=== PATIENT | female | born 1940 | race Caucasian/White ===

== ENCOUNTER → 2019-04-01 | Outpatient (CLI) | payer OTHER ==
[~2019-04-01] MED LIST: ACET-66 PO; ASPI-555 PO; CALC-724 PO; CETI10CA5 PO; GLUC-198 PO; HYDR12.54 PO; HYDR28CR51 TP; KETOCONAZOLE; LISI-613 PO; MULT1CAP32 PO; NAPR-1180 PO; OMEP40CA13 PO; PREMC VG; RALO60TA PO; SIMV20TA6 PO
== END | disposition home or self-care (01) ==
LOC: RAH 15:08
PROVIDERS: ATTEND Internal Medicine Critical Care Medicine
DX: M85.871 Other specified disorders of bone density and structure, right ankle and foot (principal)
CPT/HCPCS: 73610

== ENCOUNTER → 2019-04-24 | Outpatient (CLI) | payer OTHER ==
[~2019-04-24] MED LIST changes: +SIMV-43 PO; -SIMV20TA6 PO
== END | disposition home or self-care (01) ==
LOC: RAH 10:24
PROVIDERS: ATTEND Physical Medicine & Rehabilitation
DX: S33.39XA Dislocation of other parts of lumbar spine and pelvis, initial encounter (principal); M41.54 Other secondary scoliosis, thoracic region; X58.XXXA Exposure to other specified factors, initial encounter; Y93.89 Activity, other specified; Y92.89 Other specified places as the place of occurrence of the external cause; Y99.8 Other external cause status
CPT/HCPCS: 72110

== ENCOUNTER → 2019-05-27 | Outpatient (CLI) | payer OTHER | END | disposition home or self-care (01) | LOC: RAH 13:27 | PROVIDERS: ATTEND Physical Medicine & Rehabilitation | DX: M51.36 Other intervertebral disc degeneration, lumbar region (principal); M47.817 Spondylosis without myelopathy or radiculopathy, lumbosacral region; M41.85 Other forms of scoliosis, thoracolumbar region; G03.8 Meningitis due to other specified causes; M48.07 Spinal stenosis, lumbosacral region; Z98.890 Other specified postprocedural states | CPT/HCPCS: 72148 ==

== ENCOUNTER → 2020-02-01 | Outpatient (CLI) | payer OTHER ==
[~2020-02-01] MED LIST changes: -ASPI-555 PO; +ASPI-556 PO
== END | disposition home or self-care (01) ==
LOC: RAH 13:30
PROVIDERS: ATTEND Physical Medicine & Rehabilitation
DX: M76.71 Peroneal tendinitis, right leg (principal)
CPT/HCPCS: 73721

== ENCOUNTER → 2020-05-26 | Outpatient (CLI) | payer OTHER ==
[~2020-05-26] MED LIST changes: +CALC-1158 PO; -CALC-724 PO
== END | disposition home or self-care (01) ==
LOC: RAH 11:29
PROVIDERS: ATTEND Physical Medicine & Rehabilitation
DX: M43.17 Spondylolisthesis, lumbosacral region (principal); M51.37 Other intervertebral disc degeneration, lumbosacral region; M51.36 Other intervertebral disc degeneration, lumbar region; M41.85 Other forms of scoliosis, thoracolumbar region; M54.5 Low back pain
CPT/HCPCS: 72114

== ENCOUNTER → 2020-06-15 | Outpatient (CLI) | payer OTHER | END | disposition home or self-care (01) | LOC: RAH 10:39 | PROVIDERS: ATTEND Physical Medicine & Rehabilitation | DX: M47.816 Spondylosis without myelopathy or radiculopathy, lumbar region (principal); M48.07 Spinal stenosis, lumbosacral region | CPT/HCPCS: 72148 ==

== ENCOUNTER 2020-08-31 12:00 | Observation (INO) | payer OTHER ==
[~2020-08-31 12:00] MED LIST changes: -ACET-66 PO; -CETI10CA5 PO; -GLUC-198 PO; -HYDR12.54 PO; -HYDR28CR51 TP; -KETOCONAZOLE; -LISI-613 PO; -NAPR-1180 PO; -PREMC VG; -RALO60TA PO
[2020-09-02 11:55] LABS: BASOPHILS % (AUTO) 0.5 % (0.0-5.0); EOSINOPHILS % (AUTO) 1.5 % (0.0-8.0); HEMATOCRIT 41.8 % (36-48); LYMPHOCYTES % (AUTO) 24.8 % (21.0-51.0); MEAN CORPUSCULAR HEMOGLOBIN 33.3 pg (27.0-33.0); MEAN CORPUSCULAR HGB CONC 33.7 g/dL (32.0-36.0); MEAN CORPUSCULAR VOLUME 98.8 fL (79-99); MONOCYTES % (AUTO) 9.4 % (3.0-13.0); NEUTROPHILS % (AUTO) 63.4 % (40.0-77.0); PLATELET COUNT (AUTO) 278 K/uL (130-400); RED BLOOD CELL COUNT(AUTO) 4.23 MIL/uL (4.00-5.50); RED CELL DISTRIBUTION WIDTH 13.1 % (11.0-15.5); WHITE BLOOD COUNT (AUTO) 8.4 K/uL (4.8-10.8)
[2020-09-02 12:14] LABS: CREATININE 0.8 mg/dL (0.5-1.5); POTASSIUM 4.6 mmol/L (3.5-5.1)
[2020-09-02 12:24] LABS: INR 0.94 (0.85-1.15); PROTHROMBIN TIME 10.3 SEC (9.6-11.6)
[2020-09-02 12:26] LABS: PARTIAL THROMBOPLASTIN TIME 27.6 SEC (26.3-35.5)
[2020-09-08] MEDS ORDERED: TRAM50TA4 PO (10:38)
[2020-09-08] MEDS ORDERED: LEVO5TAB13 PO (10:38)
[2020-09-08] MEDS ORDERED: OXYB5TAB15 PO (10:38)
[2020-09-08] MEDS ORDERED: LISI1TAB51 PO (10:38)
[2020-09-08] MEDS ORDERED: ACET-2521 PO (10:38)
[2020-09-08] MEDS ORDERED: FLUT15.845 NS (10:38)
[2020-09-09] VITALS (21 sets, daily range): BP systolic 89–150; BP diastolic 40–77
[2020-09-09] MEDS ORDERED: LACTATED RINGERS 1000ML 1,000 ML IV ONE (06:34)
[2020-09-09] MEDS ORDERED: BUPIVACAINE/PF 0.25% 30ML VIAL IJ ONE ×2 (06:59→09:52)
[2020-09-09] MEDS ORDERED: VANCOMYCIN HCL 1 GM VIAL ONE (06:59)
[2020-09-09] MEDS ORDERED: THROMBIN-JMI 20000 UNIT KIT TP ONE (07:00)
[2020-09-09] MEDS ORDERED: TOBRAMYCIN SULFATE 40MG/1ML VIAL ONE (07:00)
[2020-09-09] MEDS ORDERED: CEFAZOLIN SODIUM 1 GM VIAL ONE ×2 (07:03→07:19)
[2020-09-09] MEDS ORDERED: DEXAMETHASONE SOD PHOSPHATE 10MG/ML 1ML VIAL ONE (07:33)
[2020-09-09] MEDS ORDERED: SUCCINYLCHOLINE CHLORIDE 20 MG/ML 10 ML VIAL ONE (07:33)
[2020-09-09] MEDS ORDERED: LIDOCAINE PF 2% 5ML ABBOJECT ONE (07:33)
[2020-09-09] MEDS ORDERED: MIDAZOLAM HCL 1 MG/ML 2ML VIAL ONE (07:34)
[2020-09-09] MEDS ORDERED: ROCURONIUM 10MG/1ML SYR 10 MG/ML ML ONE ×2 (07:34→08:43)
[2020-09-09] MEDS ORDERED: ONDANSETRON HCL 4 MG/2 ML VIAL ONE (07:34)
[2020-09-09] MEDS ORDERED: NEOSTIGMINE 5MG/5ML SYR IV ONE (07:34)
[2020-09-09] MEDS ORDERED: GLYCOPYRROLATE 1 MG/5 ML SYRINGE ONE (07:34)
[2020-09-09] MEDS ORDERED: PROPOFOL 10 MG/ML 20ML VIAL IV ONE (07:34)
[2020-09-09] MEDS ORDERED: FENTANYL CITRATE PF 50 MCG/1 ML 2ML VIAL ONE (07:35)
[2020-09-09] MEDS ORDERED: MEPERIDINE-PF 25 MG/ML SYG ONE (07:52)
[2020-09-09] MEDS ORDERED: PHENYLEPHRINE HCL 10 MG/ML 1ML VIAL IV ONE (08:12)
[2020-09-09] MEDS ORDERED: EPHEDRINE SULFATE 50 MG/ML AMPULE ONE (08:28)
[2020-09-09] MEDS ORDERED: TRIAMCINOLONE ACETONIDE 40 MG/ML 1ML VIAL ONE (09:02)
[2020-09-09] MEDS ORDERED: KETOROLAC TROMETHAMINE 30MG/ML ONE (09:03)
[2020-09-09] MEDS ORDERED: TRANEXAMIC ACID 1000MG/10ML ONE (09:09)
[2020-09-09] MEDS ORDERED: HYDROMORPHONE 1 MG/1 ML AMP ONE (09:11)
[2020-09-09] MEDS ORDERED: ACETAMINOPHEN-CODEINE 300/30MG TAB PO PRN ×2 (18:00)
[2020-09-09] MEDS ORDERED: MEPERIDINE-PF 75 MG/ML SYG IM PRN (18:00)
[2020-09-09] MEDS ORDERED: TRAMADOL HCL 50 MG TABLET PO PRN (18:00)
[2020-09-09] MEDS ORDERED: ACETAMINOPHEN EXTENDED RELEASE 650 MG TABLET PO PRN (18:00)
[2020-09-09] MEDS: CEFAZOLIN SODIUM 1 GM VIAL IVP SCH (18:31)
[2020-09-09] MEDS: SODIUM CHLORIDE 0.9% 1000ML 1,000 ML IV SCH ×2 (18:31→22:37)
[2020-09-09] MEDS ORDERED: LISINOPRIL 20 MG TABLET PO SCH (21:00)
[2020-09-09] MEDS ORDERED: HYDROCHLOROTHIAZIDE 25 MG TABLET PO SCH (21:00)
[2020-09-09] MEDS ORDERED: FLUTICASONE PROPIONATE 50MCG/SPRAY 16 GM BOTTLE NS SCH (21:00)
[2020-09-09] MEDS ORDERED: OXYBUTYNIN CHLORIDE 5 MG TABLET PO SCH (21:00)
[2020-09-09] MEDS ORDERED: ONDANSETRON HCL 4 MG/2 ML VIAL IVP PRN (21:30)
[2020-09-10] MEDS: CEFAZOLIN SODIUM 1 GM VIAL IVP SCH ×2 (02:18→10:01)
[2020-09-10 04:16] VITALS: BP 118/52
[2020-09-10 07:00] VITALS: BP 103/54
[2020-09-10] MEDS ORDERED: CETIRIZINE HCL 5 MG TABLET PO SCH (09:00)
[2020-09-10] MEDS ORDERED: MULTIVITAMIN TABLET PO SCH (09:00)
[2020-09-10] MEDS ORDERED: PANTOPRAZOLE SODIUM 40 MG TABLET.DR PO SCH (09:00)
[2020-09-10] MEDS ORDERED: CALCIUM 600 + VITAMIN D 400 TABLET PO SCH (09:00)
[2020-09-10 11:30] VITALS: BP 115/54
[2020-09-10] MEDS ORDERED: SIMVASTATIN 20 MG TABLET PO SCH (17:00)
== END 2020-09-10 15:15 | disposition home or self-care (01) ==
LOC: EDSTATUS 12:00 → DAHIP 09-09 05:49 → 3DH 09-09 12:14
PROVIDERS: ADMIT Neurological Surgery; ATTEND Neurological Surgery
DX: M48.07 Spinal stenosis, lumbosacral region (principal); Z20.822 Contact with and (suspected) exposure to COVID-19; M47.27 Other spondylosis with radiculopathy, lumbosacral region; I10 Essential (primary) hypertension; K21.9 Gastro-esophageal reflux disease without esophagitis; F17.210 Nicotine dependence, cigarettes, uncomplicated; Z98.49 Cataract extraction status, unspecified eye; Z90.711 Acquired absence of uterus with remaining cervical stump; Z79.899 Other long term (current) drug therapy; Z88.5 Allergy status to narcotic agent
CPT/HCPCS: 36415; 63030; 63035 ×2; 71045; 72020; 80048; 85025; 85610; 85730; 93005; 96361 ×2; 96374; 96375; 96376; A4215; A4221; A4222; A4223; A4649 ×3; A4663; A4930; A6219; A6260; G0378 ×33; J0330; J0690 ×5; J1030; J1100; J1170; J1885; J2001; J2175; J2250; J2370; J2405 ×2; J2704; J2710; J3010; J3260; J3301; J3370; J3490 ×5; J7030; J7120 ×2; U0003

== ENCOUNTER → 2021-05-09 | Outpatient (CLI) | payer OTHER ==
[~2021-05-09] MED LIST changes: +ACET-2521 PO; -ASPI-556 PO; +FLUT15.845 NS; +LEVO5TAB13 PO; +LISI1TAB51 PO; -OMEP40CA13 PO; +OMEP40CA21 PO; +OXYB5TAB15 PO; +TRAM50TA4 PO
== END | disposition home or self-care (01) ==
LOC: RAH 09:27
PROVIDERS: ATTEND Physical Medicine & Rehabilitation
DX: I67.82 Cerebral ischemia (principal); G31.9 Degenerative disease of nervous system, unspecified
CPT/HCPCS: 70551

== ENCOUNTER 2021-05-14 15:35 | Observation (INO) | payer OTHER ==
[~2021-05-14] VITALS: Ht 157.5 cm; Wt 74.8 kg
[2021-05-14 16:00] LABS: BASOPHILS % (AUTO) 0.4 % (0.0-5.0); EOSINOPHILS % (AUTO) 1.2 % (0.0-8.0); HEMATOCRIT 41.7 % (36-48); LYMPHOCYTES % (AUTO) 27.4 % (21.0-51.0); MEAN CORPUSCULAR HEMOGLOBIN 31.5 pg (27.0-33.0); MEAN CORPUSCULAR HGB CONC 33.1 g/dL (32.0-36.0); MEAN CORPUSCULAR VOLUME 95.2 fL (79-99); MONOCYTES % (AUTO) 9.2 % (3.0-13.0); NEUTROPHILS % (AUTO) 61.4 % (40.0-77.0); PLATELET COUNT (AUTO) 258 K/uL (130-400); RED BLOOD CELL COUNT(AUTO) 4.38 MIL/uL (4.00-5.50); RED CELL DISTRIBUTION WIDTH 13.2 % (11.0-15.5); WHITE BLOOD COUNT (AUTO) 8.1 K/uL (4.8-10.8)
[2021-05-14] MEDS ORDERED: LABETALOL 20MG SYG IV ONE (16:00)
[2021-05-14 16:15] LABS: CREATININE 0.7 mg/dL (0.5-1.5); POTASSIUM 3.2 mmol/L (3.5-5.1)
[2021-05-14 16:21] LABS: B-TYPE NATRIURETIC PEPTIDE 85 pg/mL (0-100)
[2021-05-14 16:31] LABS: ALBUMIN 3.8 g/dL (3.5-5.0); BILIRUBIN,TOTAL 0.3 mg/dL (0.2-1.0); CRP QUANTITATIVE 5.2 mg/L (0.00-9.0); TOTAL PROTEIN, SERUM 7.3 g/dL (6.0-8.3)
[2021-05-14 16:53] LABS: APPEARANCE,URINE Clear (CLEAR); BILIRUBIN,URINE Negative (NEGATIVE); COLOR,URINE Yellow (YELLOW); GLUCOSE, URINE (UA) Negative (NEGATIVE); KETONES,URINE Negative (NEGATIVE); LEUKOCYTE ESTERASE ,URINE Trace (NEGATIVE); NITRATE,URINE Negative (NEGATIVE); OCCULT BLOOD,URINE Negative (NEGATIVE); PH,URINE 6.5 (5.0-8.0); PROTEIN,URINE Negative (NEGATIVE); UROBILINOGEN,URINE 0.2 mg/dL (0.2-1.0)
[2021-05-14 17:00] LABS: RBC,URINE 0-1 /HPF (0-1)
[2021-05-14 17:01] LABS: BACTERIA,URINE Rare /HPF (None Seen); SQUAMOUS EPITHELIAL CELL,UR Rare /HPF (0-2); TRANSITIONAL EPI CELLS,URINE Rare /HPF (None Seen)
[2021-05-14] MEDS ORDERED: POTASSIUM BICARB/CIT AC 25 MEQ TABLET.EFF PO ONE (18:00)
[2021-05-14 18:28] LABS: HEMOGLOBIN A1C 6.1 % (4.0-6.0)
[2021-05-14] MEDS ORDERED: ACETAMINOPHEN 325 MG TAB PO PRN (18:30)
[2021-05-14] MEDS ORDERED: ONDANSETRON 4MG INJ IV PRN (18:30)
[2021-05-14] MEDS ORDERED: NITROGLYCERIN 0.4 MG SL TAB SL PRN (18:30)
[2021-05-14 18:37] LABS: CREATINE KINASE, TOTAL 133 U/L (21-232)
[2021-05-14 18:43] LABS: THYROID STIMULATING HORMONE 1.87 uIU/mL (0.36-3.74)
[2021-05-14 18:44] LABS: MAGNESIUM 2.1 mg/dL (1.80-2.40)
[2021-05-14 19:06] LABS: MYOGLOBIN 60 ng/mL (10-92)
[2021-05-14 19:09] LABS: INR 0.99 (0.85-1.15); PROTHROMBIN TIME 10.8 SEC (9.6-11.6)
[2021-05-14 19:10] LABS: PARTIAL THROMBOPLASTIN TIME 28.2 SEC (26.3-35.5)
[2021-05-14] MEDS ORDERED: DILTIAZEM 50MG VIAL IV SCH (20:00)
[2021-05-14] MEDS ORDERED: DILTIAZEM 125MG+100 ML NS 125 ML IV SCH (20:00)
[2021-05-14] MEDS ORDERED: DILTIAZEM 25MG INJ IVP ONE (20:00)
[2021-05-14] MEDS ORDERED: DILTIAZEM 125 MG/25 ML INJ 125 MG in 0.9%NACL 100ML 100 ML IV SCH (20:00)
[2021-05-14] MEDS: 0.9%NACL 1000ML 1,000 ML IV SCH (20:08)
[2021-05-14] MEDS: METOPROLOL TARTRATE 25 MG TAB PO SCH (20:16)
[2021-05-14] MEDS: FAMOTIDINE 20MG TAB PO SCH (20:16)
[2021-05-14] MEDS: ENOXAPARIN SODIUM 40 MG/0.4 ML SYRINGE SQ ONE ×2 (20:17→20:27)
[2021-05-14 20:55] LABS: AMPHET/METH SCREEN,URINE NEGATIVE (NEGATIVE); BARBITURATE SCREEN, URINE NEGATIVE (NEGATIVE); BENZODIAZEPINES SCREEN,URINE NEGATIVE (NEGATIVE); CANNABINOID SCREEN,URINE NEGATIVE (NEGATIVE); COCAINE SCREEN,URINE NEGATIVE (NEGATIVE); OPIATE SCREEN,URINE NEGATIVE (NEGATIVE); PHENCYCLIDINE SCREEN,URINE NEGATIVE (NEGATIVE)
[2021-05-15] MEDS: ACETAMINOPHEN 325 MG TAB PO PRN ×3 (01:31→17:10)
[2021-05-15] MEDS: 0.9%NACL 1000ML 1,000 ML IV SCH ×2 (04:30→17:10)
[2021-05-15 06:37] LABS: BASOPHILS % (AUTO) 0.4 % (0.0-5.0); EOSINOPHILS % (AUTO) 1.1 % (0.0-8.0); HEMATOCRIT 39.7 % (36-48); LYMPHOCYTES % (AUTO) 25.6 % (21.0-51.0); MEAN CORPUSCULAR HEMOGLOBIN 31.6 pg (27.0-33.0); MEAN CORPUSCULAR HGB CONC 33.2 g/dL (32.0-36.0); MONOCYTES % (AUTO) 10.2 % (3.0-13.0); NEUTROPHILS % (AUTO) 62.4 % (40.0-77.0); PLATELET COUNT (AUTO) 255 K/uL (130-400); RED BLOOD CELL COUNT(AUTO) 4.18 MIL/uL (4.00-5.50); RED CELL DISTRIBUTION WIDTH 13.5 % (11.0-15.5); WHITE BLOOD COUNT (AUTO) 7.4 K/uL (4.8-10.8)
[2021-05-15 06:50] LABS: ALBUMIN 3.6 g/dL (3.5-5.0); BILIRUBIN,TOTAL 0.3 mg/dL (0.2-1.0); CREATININE 0.8 mg/dL (0.5-1.5); MAGNESIUM 2.1 mg/dL (1.80-2.40); POTASSIUM 3.6 mmol/L (3.5-5.1)
[2021-05-15] MEDS: ENOXAPARIN SODIUM 40 MG/0.4 ML SYRINGE SQ SCH (08:05)
[2021-05-15] MEDS: METOPROLOL TARTRATE 25 MG TAB PO SCH ×2 (08:05→20:38)
[2021-05-15] MEDS: FAMOTIDINE 20MG TAB PO SCH ×2 (08:05→20:38)
[2021-05-16] MEDS: 0.9%NACL 1000ML 1,000 ML IV SCH (00:30)
[2021-05-16] MEDS: METOPROLOL TARTRATE 25 MG TAB PO SCH (09:00)
[2021-05-16] MEDS: FAMOTIDINE 20MG TAB PO SCH (09:34)
[2021-05-16] MEDS: ENOXAPARIN SODIUM 40 MG/0.4 ML SYRINGE SQ SCH (09:34)
[2021-05-16] MEDS ORDERED: APIX5TAB PO (16:47)
[2021-05-16] MEDS ORDERED: METO25TA6 PO (17:27)
[2021-05-16 17:28] VITALS: BP 157/74
== END 2021-05-16 18:20 | disposition home or self-care (01) ==
LOC: EDH 15:35 → EDHIP 18:10 → INTOOBSV 18:10 → EDHIP 05-16 18:31
PROVIDERS: ADMIT Internal Medicine; ATTEND Internal Medicine
DX: I48.91 Unspecified atrial fibrillation (principal); Z20.822 Contact with and (suspected) exposure to COVID-19; E87.6 Hypokalemia; E66.9 Obesity, unspecified; I48.20 Chronic atrial fibrillation, unspecified; R19.7 Diarrhea, unspecified; R82.71 Bacteriuria; I10 Essential (primary) hypertension; K21.9 Gastro-esophageal reflux disease without esophagitis; M48.061 Spinal stenosis, lumbar region without neurogenic claudication; N81.4 Uterovaginal prolapse, unspecified; N32.81 Overactive bladder; E78.00 Pure hypercholesterolemia, unspecified; D68.59 Other primary thrombophilia; Z86.73 Personal history of transient ischemic attack (TIA), and cerebral infarction without residual deficits; Z79.01 Long term (current) use of anticoagulants; Z79.899 Other long term (current) drug therapy; Z87.891 Personal history of nicotine dependence; Z90.710 Acquired absence of both cervix and uterus; Z98.890 Other specified postprocedural states; Z68.30 Body mass index [BMI] 30.0-30.9, adult
CPT/HCPCS: 36415 ×2; 71045; 80053 ×2; 80061; 80305; 81001; 82550 ×2; 83036; 83735 ×2; 83874 ×2; 83880; 84443; 84484 ×2; 85025 ×2; 85610; 85730; 86140; 87088; 87635; 93005 ×3; 93306; 93356; 96361 ×3; 96372 ×3; 96374; 96375; 99285; G0378; J1650 ×3; J3490 ×2; J7030

== ENCOUNTER → 2021-06-30 | Outpatient (CLI) | payer OTHER ==
[~2021-06-30] MED LIST changes: +APIX5TAB PO; +METO25TA6 PO; +REGADENOSON 0.4 MG/5 ML PF SYG IVP ONE
== END | disposition home or self-care (01) ==
LOC: SHCH 08:01
PROVIDERS: ATTEND Internal Medicine Cardiovascular Disease
DX: R07.89 Other chest pain (principal); R00.1 Bradycardia, unspecified
CPT/HCPCS: 78452; 93017; 96374; A9500 ×2; J2785

== ENCOUNTER 2021-09-04 08:06 | Day surgery (SDC) | payer OTHER ==
[2021-08-31 13:10] LABS: BASOPHILS % (AUTO) 0.4 % (0.0-5.0); EOSINOPHILS % (AUTO) 1.3 % (0.0-8.0); HEMATOCRIT 42.6 % (36-48); LYMPHOCYTES % (AUTO) 25.1 % (21.0-51.0); MEAN CORPUSCULAR HEMOGLOBIN 31.6 pg (27.0-33.0); MEAN CORPUSCULAR HGB CONC 32.4 g/dL (32.0-36.0); MEAN CORPUSCULAR VOLUME 97.5 fL (79-99); MONOCYTES % (AUTO) 9.4 % (3.0-13.0); NEUTROPHILS % (AUTO) 63.5 % (40.0-77.0); PLATELET COUNT (AUTO) 282 K/uL (130-400); RED BLOOD CELL COUNT(AUTO) 4.37 MIL/uL (4.00-5.50); WHITE BLOOD COUNT (AUTO) 7.6 K/uL (4.8-10.8)
[2021-08-31 13:19] LABS: INR 1.05 (0.85-1.15); PROTHROMBIN TIME 11.4 SEC (9.6-11.6)
[2021-08-31 13:20] LABS: CREATININE 0.8 mg/dL (0.5-1.5)
[2021-08-31 13:21] LABS: PARTIAL THROMBOPLASTIN TIME 31.9 SEC (26.3-35.5)
[2021-09-01 10:05] VITALS: BP 126/69
[~2021-09-04] VITALS: Ht 157.5 cm; Wt 76.7 kg
[2021-09-04] VITALS (9 sets, daily range): BP systolic 109–137; BP diastolic 58–84
[~2021-09-04 08:06] MED LIST changes: +0.9%NACL 1000ML 1,000 ML IV SCH; +AEC81 PO; +CALC-1125 PO; -CALC-1158 PO; +DICY10CA13 PO; +DILT180C86 PO; -FLUT15.845 NS; +GABA300C PO; +HYDR12.54 PO; -LISI1TAB51 PO; +LISI40TA9 PO; -METO25TA6 PO; +PROP150T28 PO; -REGADENOSON 0.4 MG/5 ML PF SYG IVP ONE; -SIMV-43 PO; +SIMV-46 PO
[2021-09-04] MEDS ORDERED: PROPOFOL 10 MG/ML 20ML VIAL IV ONE (13:07)
[2021-09-04] MEDS ORDERED: GLYCOPYRROLATE 1 MG/5 ML SYRINGE ONE (13:08)
[2021-09-04] MEDS ORDERED: PHENYLEPHRINE HCL 10 MG/ML 1ML VIAL IV ONE (13:08)
== END 2021-09-04 14:12 | disposition home or self-care (01) ==
LOC: DAH 08:06
PROVIDERS: ATTEND Internal Medicine Cardiovascular Disease
DX: I48.0 Paroxysmal atrial fibrillation (principal); Z20.822 Contact with and (suspected) exposure to COVID-19; I10 Essential (primary) hypertension; K21.9 Gastro-esophageal reflux disease without esophagitis; Z79.899 Other long term (current) drug therapy; Z79.01 Long term (current) use of anticoagulants; Z79.82 Long term (current) use of aspirin; Z98.890 Other specified postprocedural states; Z90.710 Acquired absence of both cervix and uterus; Z98.49 Cataract extraction status, unspecified eye; Z86.73 Personal history of transient ischemic attack (TIA), and cerebral infarction without residual deficits; Z88.8 Allergy status to other drugs, medicaments and biological substances
CPT/HCPCS: 36415; 80048; 85025; 85610; 85730; 87635; 92960; 93005 ×2; A4215; A4216; A4221; A4222; A4223 ×3; A4606; A4663; C9803; J2370; J2704; J3490; J7030 ×2

== ENCOUNTER 2022-05-16 05:47 | Day surgery (SDC) | payer OTHER ==
[2022-05-14 12:42] LABS: INR 0.94 (0.85-1.15); PROTHROMBIN TIME 10.3 SEC (9.6-11.6)
[2022-05-14 12:44] LABS: PARTIAL THROMBOPLASTIN TIME 22.9 SEC (26.3-35.5)
[2022-05-14 12:56] LABS: CREATININE 0.9 mg/dL (0.5-1.5); POTASSIUM 4.1 mmol/L (3.5-5.1)
[2022-05-15 09:02] VITALS: BP 141/65
[~2022-05-16] VITALS: Ht 157.5 cm; Wt 76.4 kg
[2022-05-16] VITALS (10 sets, daily range): BP systolic 128–181; BP diastolic 54–85
[~2022-05-16 05:47] MED LIST changes: -0.9%NACL 1000ML 1,000 ML IV SCH; +AMIO200T68 PO; -DICY10CA13 PO; -DILT180C86 PO; +FLUT16H NASAL; +LEVO50TA11 PO; -PROP150T28 PO; +ROSU10TA28 PO; -SIMV-46 PO
[2022-05-16] MEDS ORDERED: BUPIVACAINE/PF 0.25% 30ML VIAL IJ ONE (07:03)
[2022-05-16] MEDS ORDERED: CEFAZOLIN SODIUM 1 GM VIAL ONE (07:03)
[2022-05-16] MEDS ORDERED: LIDOCAINE HCL 1% 20 ML VIAL ONE (07:03)
[2022-05-16] MEDS ORDERED: MEPERIDINE-PF 25 MG/ML SYG ONE ×2 (07:04→07:46)
[2022-05-16] MEDS ORDERED: MIDAZOLAM HCL 1 MG/ML 2ML VIAL ONE ×2 (07:04→07:46)
[2022-05-16 07:19] LABS: BASOPHILS % (AUTO) 0.6 % (0.0-5.0); EOSINOPHILS % (AUTO) 2.8 % (0.0-8.0); HEMATOCRIT 31.8 % (36-48); LYMPHOCYTES % (AUTO) 27.5 % (21.0-51.0); MEAN CORPUSCULAR HEMOGLOBIN 28.4 pg (27.0-33.0); MEAN CORPUSCULAR HGB CONC 32.1 g/dL (32.0-36.0); MEAN CORPUSCULAR VOLUME 88.6 fL (79-99); NEUTROPHILS % (AUTO) 56.7 % (40.0-77.0); PLATELET COUNT (AUTO) 249 K/uL (130-400); RED BLOOD CELL COUNT(AUTO) 3.59 MIL/uL (4.00-5.50); RED CELL DISTRIBUTION WIDTH 14.8 % (11.0-15.5); WHITE BLOOD COUNT (AUTO) 5.4 K/uL (4.8-10.8)
[2022-05-16] MEDS ORDERED: CEFAZOLIN SODIUM 2 GM VIAL IVPB SCH (08:00)
[2022-05-16] MEDS ORDERED: 0.9%NACL 1000ML 1,000 ML IV SCH (08:00)
[2022-05-16] MEDS ORDERED: ACETAMINOPHEN 500 MG TABLET PO PRN (09:00)
[2022-05-16] MEDS ORDERED: ACETAMINOPHEN WITH CODEINE 1 TAB TAB PO PRN (09:00)
== END 2022-05-16 12:15 | disposition home or self-care (01) ==
LOC: DAH 05:47
PROVIDERS: ATTEND Internal Medicine Cardiovascular Disease
DX: I49.5 Sick sinus syndrome (principal); I48.0 Paroxysmal atrial fibrillation; I10 Essential (primary) hypertension; Z79.899 Other long term (current) drug therapy; Z79.01 Long term (current) use of anticoagulants; Z79.82 Long term (current) use of aspirin; Z79.890 Hormone replacement therapy; Z94.9 Transplanted organ and tissue status, unspecified; Z90.49 Acquired absence of other specified parts of digestive tract; Z98.49 Cataract extraction status, unspecified eye; Z98.890 Other specified postprocedural states; Z82.49 Family history of ischemic heart disease and other diseases of the circulatory system; Z83.3 Family history of diabetes mellitus; Z88.8 Allergy status to other drugs, medicaments and biological substances
CPT/HCPCS: 80048; 85610; 85730; 36415 ×2; 93005; 33208; 85025; 71045; C1785; C1898 ×2; J0690; J3490; J2250 ×2; J2175 ×2; A4215; A6251; A4222; A4221; A4663; A4216; A6258; A4606; A4223 ×3; 99156; 99157

== ENCOUNTER → 2022-12-24 | Outpatient (CLI) | payer OTHER | END | disposition home or self-care (01) | LOC: RAH 11:32 | PROVIDERS: ATTEND Physician Assistant | DX: M47.26 Other spondylosis with radiculopathy, lumbar region (principal); M48.061 Spinal stenosis, lumbar region without neurogenic claudication; M46.1 Sacroiliitis, not elsewhere classified; M54.51 Vertebrogenic low back pain | CPT/HCPCS: 72114 ==

== ENCOUNTER 2023-05-28 11:29 | Emergency (ER) | payer OTHER ==
[~2023-05-28] VITALS: Ht 160 cm; Wt 77.1 kg
[~2023-05-28 11:29] MED LIST changes: -OXYB5TAB15 PO; +OXYB5TAB20 PO
[2023-05-28 13:51] VITALS: BP 138/76; PULSE 79; RESP 17; O2SAT 96
== END 2023-05-28 13:52 | disposition home or self-care (01) ==
LOC: EDH 11:29
DX: H53.2 Diplopia (principal); I10 Essential (primary) hypertension; E11.9 Type 2 diabetes mellitus without complications; E78.00 Pure hypercholesterolemia, unspecified; Z79.82 Long term (current) use of aspirin; Z79.84 Long term (current) use of oral hypoglycemic drugs; Z79.899 Other long term (current) drug therapy; Z98.890 Other specified postprocedural states; Z88.8 Allergy status to other drugs, medicaments and biological substances
CPT/HCPCS: 99281

== ENCOUNTER → 2023-06-11 | Outpatient (CLI) | payer OTHER | END | disposition home or self-care (01) | LOC: RAH 10:33 | PROVIDERS: ATTEND Internal Medicine Cardiovascular Disease | DX: G31.9 Degenerative disease of nervous system, unspecified (principal); H53.8 Other visual disturbances; I48.19 Other persistent atrial fibrillation; Z86.73 Personal history of transient ischemic attack (TIA), and cerebral infarction without residual deficits | CPT/HCPCS: 70450 ==

== ENCOUNTER → 2023-10-21 | Outpatient (CLI) | payer OTHER | END | disposition home or self-care (01) | LOC: RAH 09-05 14:54 | PROVIDERS: ATTEND Physical Medicine & Rehabilitation | DX: M47.26 Other spondylosis with radiculopathy, lumbar region (principal); M48.05 Spinal stenosis, thoracolumbar region; M41.55 Other secondary scoliosis, thoracolumbar region; M46.1 Sacroiliitis, not elsewhere classified | CPT/HCPCS: 72148 ==

== ENCOUNTER → 2023-11-25 | Outpatient (CLI) | payer OTHER ==
[~2023-11-25] MED LIST changes: -ROSU10TA28 PO; +ROSU10TA72 PO
== END | disposition home or self-care (01) ==
LOC: SHCH 14:23
PROVIDERS: ATTEND Internal Medicine Cardiovascular Disease
DX: I34.0 Nonrheumatic mitral (valve) insufficiency (principal); I11.9 Hypertensive heart disease without heart failure; I48.19 Other persistent atrial fibrillation; E78.5 Hyperlipidemia, unspecified
CPT/HCPCS: 93306

== ENCOUNTER 2023-12-06 06:19 | Day surgery (SDC) | payer OTHER ==
[2023-12-05 11:59] LABS: BASOPHILS # (AUTO) 0.03 K/uL (0.00-0.20); BASOPHILS % (AUTO) 0.4 % (0.0-5.0); EOSINOPHILS # (AUTO) 0.07 K/uL (0.00-0.70); EOSINOPHILS % (AUTO) 0.9 % (0.0-8.0); HEMATOCRIT 39.1 % (36-48); IMMATURE GRANULOCYTE ABSOLUTE 0.04 K/uL (0-1); LYMPHOCYTES # (AUTO) 1.5 K/uL (1.0-4.8); MEAN CORPUSCULAR HEMOGLOBIN 31.7 pg (27.0-33.0); MEAN CORPUSCULAR VOLUME 93.3 fL (79-99); MONOCYTES # (AUTO) 0.9 K/uL (0.1-1.0); NEUTROPHILS # (AUTO) 5.5 K/uL (1.8-7.7); NEUTROPHILS % (AUTO) 68.2 % (40.0-77.0); PLATELET COUNT (AUTO) 328 K/uL (130-400); RED BLOOD CELL COUNT(AUTO) 4.19 MIL/uL (4.00-5.50); RED CELL DISTRIBUTION WIDTH 15.5 % (11.0-15.5)
[2023-12-05 12:27] LABS: CREATININE 0.8 mg/dL (0.5-1.0); POTASSIUM 4.1 mmol/L (3.5-5.1)
[2023-12-05 12:54] VITALS: BP 121/70; PULSE 80; RESP 18
[~2023-12-06] VITALS: Ht 157.5 cm; Wt 73.7 kg
[2023-12-06] VITALS (15 sets, daily range): BP systolic 98–143; BP diastolic 55–89; PULSE 62–92; RESP 10–20
[~2023-12-06 06:19] MED LIST changes: -ACET-2521 PO; -AEC81 PO; -AMIO200T68 PO; +BEVA25VI IV; -CALC-1125 PO; +CALCIUM VITD PO; +DILT180C77 PO; -FLUT16H NASAL; +GAS X PO; +GUAI400T94 PO; -LEVO50TA11 PO; +LEVO75CA5 PO; -MULT1CAP32 PO; +PROP325C17 PO; -ROSU10TA72 PO; +TYLENOL ARTHRITIS PO; +VIT1CAPS47 PO
[2023-12-06] MEDS: 0.9%NACL 1000ML 1,000 ML IV ONE (07:26)
[2023-12-06] MEDS ORDERED: PROPOFOL 10 MG/ML 20ML VIAL IV ONE (08:52)
== END 2023-12-06 09:55 | disposition home or self-care (01) ==
LOC: DAH 06:19
PROVIDERS: ATTEND Internal Medicine Cardiovascular Disease
DX: I48.19 Other persistent atrial fibrillation (principal); I10 Essential (primary) hypertension; E78.5 Hyperlipidemia, unspecified; I42.0 Dilated cardiomyopathy; Z95.0 Presence of cardiac pacemaker; Z88.5 Allergy status to narcotic agent; Z88.8 Allergy status to other drugs, medicaments and biological substances; Z98.890 Other specified postprocedural states; Z79.899 Other long term (current) drug therapy
CPT/HCPCS: 80048; 85025; 36415; 92960; 93005 ×2; J7030; J2704; A4620; A4215; A4222; A4221; A4663; A4216; A4606; A4223 ×3; J3490

== ENCOUNTER → 2024-04-20 | Outpatient (CLI) | payer OTHER ==
--- NOTE | 2024-04-20 14:16 | HMCIMG ---
US VENOUS DOPPLER BILATERAL REASON: localized edema COMPARISON: None Technique: Bilateral venous doppler ultrasound was performed with spectral analysis and color flow imaging technique. FINDINGS: There is a normal appearance of the common femoral, deep femoral, the profunda femoris and popliteal veins. Proximal calf veins appear normal as well. There is normal response to compression and augmentation. There is no evidence of deep venous thrombosis. IMPRESSION: Normal bilateral lower extremity venous Doppler ultrasound.
== END | disposition home or self-care (01) ==
LOC: RAH 13:00
PROVIDERS: ATTEND Internal Medicine Critical Care Medicine
DX: R60.0 Localized edema (principal)
CPT/HCPCS: 93970

== ENCOUNTER → 2024-06-22 | Outpatient (CLI) | payer OTHER | END | disposition home or self-care (01) | LOC: SHCH 15:23 | PROVIDERS: ATTEND Internal Medicine Cardiovascular Disease | DX: I42.0 Dilated cardiomyopathy (principal); I48.19 Other persistent atrial fibrillation | CPT/HCPCS: 93306 ==